=== PATIENT | male | born 1965 | race Caucasian/White ===

== ENCOUNTER 2019-10-11 12:45 | Emergency (ER) | payer BC, OTHER ==
[2019-10-11 13:09] VITALS: BP 128/89
[2019-10-11 13:46] LABS: Influenza A Molecular Negative (Negative); Influenza B Molecular Negative (Negative)
--- NOTE | 2019-10-11 14:11 | UC ---
UC General HPI - HPI Summary HPI Summary: PATIENT TRAVELED TO [facility] [place] IN [facility] 6-1/2 WEEKS AGO. RETURNED TO [place] 4-1/2 WEEKS AGO ON 09/10/2019. ABOUT 1 WEEK LATER PATIENT DEVELOPED SOME CONGESTION, FATIGUE AND BODY ACHES. NO FEVER OR SIGNIFICANT COUGH. NO NAUSEA/VOMITING. THE SYMPTOMS HAVE BEEN PERSISTENT FOR THESE PAST FEW WEEKS UNTIL PATIENT CAME IN FOR EVALUATION. - History of Current Complaint Chief Complaint: UCRespiratory Stated Complaint: CONGESTION,ACHES Hx Obtained From: Patient Onset/Duration: Gradual Onset, Lasting Weeks, Still Present Timing: Constant Onset Severity: Mild Current Severity: Mild Pain Intensity: 2 Associated Signs & Symptoms: Negative: Cough, Fever, Headache, Nausea, SOB, Vomiting - Allergy/Home Medications Allergies/Adverse Reactions: Allergies Allergy/AdvReac Type Severity Reaction Status Date / Time No Known Allergies Allergy Verified 10/11/19 13:09 Home Medications: Home Medications Zap-3 Fatty Acids (Nf) [Fish Oil (NF)] 1,000 mg PO DAILY 11/13/14 [History Confirmed 10/11/19] Acetaminophen TAB* [Tylenol TAB*] 650 mg PO ONCE PRN 10/11/19 [History Confirmed 10/11/19] Ascorbic Acid TAB* [Vitamin C TAB*] 500 mg PO DAILY 10/11/19 [History Confirmed 10/11/19] Gluc Stern/Chondro Stern A/Vit C/Mn [Glucosamine Chondroitin Tab] 1 each PO DAILY [History Confirmed 10/11/19] PMH/Surg Hx/FS Hx/Imm Hx Previously Healthy: Yes - Surgical History Surgical History: Yes Surgery Procedure, Year, and Place: RIGHT KNEE ACL REPAIR - Family History Known Family History: Positive: Non-Contributory - Social History Alcohol Use: Daily Alcohol Amount: 1 glass/day Substance Use Type: None Smoking Status (MU): Never Smoked Tobacco Review of Systems All Other Systems Reviewed And Are Negative: Yes Constitutional: Positive: Fatigue ENT: Positive: Other - NASAL CONGESTION Respiratory: Positive: Negative Cardiovascular: Positive: Negative Gastrointestinal: Positive: Negative Musculoskeletal: Positive: Myalgia Neurological/Mental Status: Negative: Headache Physical Exam Triage Information Reviewed: Yes Appearance: Well-Appearing, No Pain Distress, Well-Nourished Vital Signs: Initial Vital Signs Temp 97.4 F 10/11/19 13:04 Pulse 75 10/11/19 13:04 Resp 16 10/11/19 13:04 BP 128/89 10/11/19 13:04 Pulse Ox 99 10/11/19 13:04 Laboratory Tests 10/11/19 10/11/19 13:32 13:34 Influenza A (Rapid) Negative Influenza B (Rapid) Negative Group A Strep Rapid Negative Vital Signs Reviewed: Yes Eyes: Positive: Conjunctiva Clear ENT: Positive: Hearing grossly normal, Pharynx normal, TMs normal Neck: Positive: Supple, Nontender, No Lymphadenopathy Respiratory Exam: Normal Cardiovascular Exam: Normal Abdomen Description: Positive: Soft Musculoskeletal: Positive: No Edema Neurological: Positive: Alert Psychological: Positive: Age Appropriate Behavior Skin: Negative: Rashes Course/Dx - Course Course Of Treatment: FLU NEGATIVE. STREP NEGATIVE. PATIENT LIKELY WITH VIRALLY MEDIATED SYMPTOMS THAT SHOULD RESOLVE ON THEIR OWN WITH TIME. REST, HYDRATE, OTC MEDS NEEDED. FOLLOW-UP IF NOT IMPROVING EXPECTED. [facility]OL AND HEALTH DEPARTMENT CONTACTED GIVEN PATIENT'S RECENT TRAVEL TO [place]. HE DOES NOT MEET CRITERIA FOR COVID19 TESTING. - Diagnoses Provider Diagnosis: Viral syndrome Discharge ED - Sign-Out/Discharge Documenting (check all that apply): Patient Departure All imaging exams completed and their final reports reviewed: No Studies - Discharge Plan Condition: Stable Disposition: HOME Patient Education Materials: Viral Syndrome (ED) Referrals: Nasir Wright MD [Primary Care Provider] - If Needed Additional Instructions: STREP NEGATIVE. FLU NEGATIVE. THE HEALTH DEPARTMENT WAS CONTACTED GIVEN YOUR HISTORY OF RECENT TRAVEL BUT YOU DO NOT MEET CRITERIA FOR PEREZ VIRUS TESTING. YOUR SYMPTOMS ARE LIKELY VIRALLY MEDIATED AND SHOULD RESOLVE ON THEIR OWN WITH TIME. REST, HYDRATE, OTC MEDS NEEDED. FOLLOW-UP WITH YOUR PCP IF YOUR SYMPTOMS ARE NOT IMPROVING OVER THE NEXT FEW WEEKS. - Billing Disposition and Condition Condition: STABLE Disposition: Home
== END 2019-10-11 14:40 | disposition home or self-care (01) ==
LOC: UCEAST 12:45
DX: B34.9 Viral infection, unspecified (principal)
CPT/HCPCS: 87651; 99201; G0463